=== PATIENT | male | born 1975 | race Caucasian/White ===

== ENCOUNTER 2017-11-20 14:16 | Emergency (ER) | payer OTHER, BC ==
--- NOTE | 2017-11-20 14:46 | EDM.PDOC ---
ED HPI GENERAL MEDICAL PROBLEM - General Chief Complaint: Upper Extremity Injury/Pain Stated Complaint: SMASHED LEFT HAND Time Seen by Provider: 11/20/17 14:41 Source of Information: Reports: Patient History Limitations: Reports: No Limitations - History of Present Illness INITIAL COMMENTS - FREE TEXT/NARRATIVE: HISTORY AND PHYSICAL: History of present illness: Patient is a 42-year-old male here with complaint of left hand pain. He states that he works for [employer] and they were doing a search warrant last night. He states they're using a lidia to open a door and as he was doing that he hit his left hand on the door is open. He is otherwise in his usual state of health and denies any nausea, vomiting, diarrhea, fever, chills, chest pain, shortness of breath. He has not taken anything OTC for his symptoms. Review of systems: As per history of present illness and below otherwise all systems reviewed and negative. Past medical history: As per history of present illness and as reviewed below otherwise noncontributory. Surgical history: As per history of present illness and as reviewed below otherwise noncontributory. Social history: No reported history of drug or alcohol abuse. Family history: As per history of present illness and as reviewed below otherwise noncontributory. Physical exam: General: Patient sitting comfortably in no acute distress and nontoxic appearing HEENT: Atraumatic, normocephalic, pupils reactive, negative for conjunctival pallor or scleral icterus, mucous membranes moist, throat clear, neck supple, nontender, trachea midline. No meningeal signs. Lungs: Clear to auscultation, breath sounds equal bilaterally, chest nontender. Heart: S1S2, regular, negative for clicks, rubs, or overt murmur. Extremities: Skin is intact. There is a quarter size area of ecchymosis over the distal fourth and fifth metacarpal on the dorsal hand. He has pain to palpation in this area. He has normal ROM at MCPs, DIPs, PIPs, and wrist. negative for cords or calf pain. Neurovascular unremarkable. Neuro: Awake, alert, oriented. Cranial nerves II through XII unremarkable. Cerebellum unremarkable. Motor and sensory unremarkable throughout. Exam nonfocal. Notes: Diagnostics: Left hand x-ray Therapeutics: None Prescriptions: None Impression: Left hand injury/contusion Plan: 1. Ice, elevate, and take motrin as needed. 2. Please follow up in the clinic for a work comp follow up. 3. Return to ED as needed as discussed. Definitive disposition and diagnosis as appropriate pending reevaluation and review of above. Left Hand Pain Score (Numeric/FACES): 3 - Related Data Allergies Allergy/AdvReac Type Severity Reaction Status Date / Time No Known Allergies Allergy Verified 05/07/16 12:42 Home Meds: Home Meds Albuterol [Proventil HFA] 6.7 gm INH Q4H #1 inhaler 05/07/16 [Rx] Mesalamine [Lialda] 1 tab PO DAILY 05/07/16 [History] Past Medical History HEENT History: Reports: Sinusitis Cardiovascular History: Reports: None Respiratory History: Reports: Asthma Gastrointestinal History: Reports: Other (See Below) Other Gastrointestinal History: ulcerative colitis Genitourinary History: Reports: None Musculoskeletal History: Reports: None Neurological History: Reports: None Psychiatric History: Reports: None Endocrine/Metabolic History: Reports: None Hematologic History: Reports: None Immunologic History: Reports: None Oncologic (Cancer) History: Reports: None Dermatologic History: Reports: None - Infectious Disease History Infectious Disease History: Reports: Chicken Pox - Past Surgical History HEENT Surgical History: Reports: Other (See Below) Social & Family History - Family History Family Medical History: Noncontributory - Caffeine Use Caffeine Use: Reports: Coffee Caffeine Use Comment: 3 drinks/day Review of Systems - Review of Systems Review Of Systems: ROS reveals no pertinent complaints other than HPI. ED EXAM, GENERAL - Physical Exam Exam: See Below (see dictation) Course - Vital Signs Last Recorded V/S: Last Vital Signs Temp 36.7 C 11/20/17 14:32 Pulse 82 11/20/17 14:32 Resp 18 11/20/17 14:32 BP 171/101 H 11/20/17 14:32 Pulse Ox 100 11/20/17 14:32 Departure - Departure Time of Disposition: 15:18 Disposition: Home, Self-Care 01 Condition: Good Clinical Impression: Contusion of left hand - Discharge Information Referrals: PCP,None [Primary Care Provider] - Forms: ED Department Discharge Additional Instructions: The following information is given to patients seen in the emergency department who are being discharged to home. This information is to outline your options for follow-up care. We provide all patients seen in our emergency department with a follow-up referral. The need for follow-up, as well as the timing and circumstances, are variable depending upon the specifics of your emergency department visit. If you don't have a primary care physician on staff, we will provide you with a referral. We always advise you to contact your personal physician following an emergency department visit to inform them of the circumstance of the visit and for follow-up with them and/or the need for any referrals to a consulting specialist. The emergency department will also refer you to a specialist when appropriate. This referral assures that you have the opportunity for follow-up care with a specialist. All of these measure are taken in an effort to provide you with optimal care, which includes your follow-up. Under all circumstances we always encourage you to contact your private physician who remains a resource for coordinating your care. When calling for follow-up care, please make the office aware that this follow-up is from your recent emergency room visit. If for any reason you are refused follow-up, please contact the [facility] Emergency [facility] at and asked to speak to the emergency department charge nurse. [facility] [address] [place] [id number] [facility] [address] [place] [id number] 1. Ice, elevate, and take motrin as needed. 2. Please follow up in the clinic for a work comp follow up. 3. Return to ED as needed as discussed.
--- NOTE | 2017-11-20 15:15 | CR ---
EXAMINATION: Left hand HISTORY: Pain COMPARISON: None TECHNIQUE: 2 views FINDINGS: There is an old nonunited ulnar styloid fracture identified with corticated margins. The re maining osseous structures and joint spaces appear preserved. Bone mineralization is otherwise normal . No foreign body. IMPRESSION: No acute osseous abnormality identified.
[2017-11-20 15:54] VITALS: BP 164/106
== END 2017-11-20 15:54 | disposition home or self-care (01) ==
LOC: MW.ED 14:16
DX: S60.222A Contusion of left hand, initial encounter (principal); Z79.899 Other long term (current) drug therapy; W23.1XXA Caught, crushed, jammed, or pinched between stationary objects, initial encounter; Y99.0 Civilian activity done for income or pay
CPT/HCPCS: 73120-26-LT; 73120-LT; 99283

== ENCOUNTER 2020-03-02 07:35 | Day surgery (SDC) | payer OTHER ==
[~2020-03-02 07:35] MED LIST: Bupivacaine 25%/EPINEPHrine/PF 30 ML ONE; Lactated Ringers 1,000 ML IV SCH; Midazolam 1 MG/ML 2 ML SDV ONE; Ondansetron 4 MG/2 ML SDV ONE; Propofol 200 MG/20 ML SDV ONE; Rocuronium Bromide 50 MG/5 ML Syringe ONE; fentaNYL 100 MCG/2 ML SDV ONE
--- NOTE | 2020-03-02 07:46 | PCM.PREANE ---
Preanesthetic Assessment - Anesthesia/Transfusion/Family Hx Anesthesia History: Prior Anesthesia Without Reaction Family History of Anesthesia Reaction: No Transfusion History: No Prior Transfusion(s) Intubation History: Unknown - Review of Systems General: No Symptoms Pulmonary: No Symptoms Cardiovascular: No Symptoms Gastrointestinal: No Symptoms Neurological: No Symptoms Other: Reports: None - Physical Assessment Height: 6 ft 2 in Weight: 114.759 kg ASA Class: 2 Mental Status: Alert & Oriented x3 Airway Class: Mallampati = 2 Dentition: Reports: Normal Dentition Thyro-Mental Finger Breadths: 3 Mouth Opening Finger Breadths: 3 ROM/Head Extension: Full Lungs: Clear to Auscultation, Normal Respiratory Effort Cardiovascular: Regular Rate, Regular Rhythm - Lab Values: Laboratory Last Values SARS-CoV-2 RNA (SHERRY) NEGATIVE (NEGATIVE) 03/02/20 06:00 - Allergies Allergies/Adverse Reactions: Allergies Allergy/AdvReac Type Severity Reaction Status Date / Time No Known Allergies Allergy Verified 02/25/20 13:37 - Blood Blood Available: No - Anesthesia Plan Pre-Op Medication Ordered: None - Acknowledgements Anesthesia Type Planned: General Anesthesia Pt an Appropriate Candidate for the Planned Anesthesia: Yes Alternatives and Risks of Anesthesia Discussed w Pt/Guardian: Yes Pt/Guardian Understands and Agrees with Anesthesia Plan: Yes PreAnesthesia Questionnaire HEENT History: Reports: Sinusitis Cardiovascular History: Reports: Hypertension Respiratory History: Reports: Asthma (exercize induced) Gastrointestinal History: Reports: Other (See Below) Other Gastrointestinal History: ulcerative colitis Genitourinary History: Reports: None Musculoskeletal History: Reports: Fracture Other Musculoskeletal History: hx fx hand Neurological History: Reports: Migraines Psychiatric History: Reports: None Endocrine/Metabolic History: Reports: Obesity/BMI 30+ (BMI 32.5) Hematologic History: Reports: None Immunologic History: Reports: None Oncologic (Cancer) History: Reports: None Dermatologic History: Reports: None - Infectious Disease History Infectious Disease History: Reports: None - Past Surgical History Head Surgeries/Procedures: Reports: None HEENT Surgical History: Reports: Naso-Sinus Surgery Cardiovascular Surgical History: Reports: None Respiratory Surgical History: Reports: None GI Surgical History: Reports: Other (See Below) Other GI Surgeries/Procedures: hemorrhoidectomy Male Surgical History: Reports: None Endocrine Surgical History: Reports: None Neurological Surgical History: Reports: None Musculoskeletal Surgical History: Reports: None Oncologic Surgical History: Reports: None Dermatological Surgical History: Reports: Other (See Below) - SUBSTANCE USE Tobacco Use Status *Q: Former Tobacco User Tobacco Use Within Last Twelve Months: Smokeless Tobacco, Other (See Below) - HOME MEDS Home Medications: Home Meds Albuterol [Proventil HFA] 2 puff INH Q4H PRN 09/27/18 [History] Fluticasone Propionate [Flonase Allergy Relief] 1 spray NASBOTH DAILY 09/27/18 [History] Lisinopril 40 mg PO DAILY 09/27/18 [History] Montelukast Sodium [Singulair] 10 mg PO ASDIRECTED 09/27/18 [History] Fexofenadine/Pseudoephedrine [Alisia-D 24 Hour Tablet] 1 tab PO ASDIRECTED 02/25/20 [History] Zinc Gluconate [Zinc] 1 tab PO DAILY 02/25/20 [History] - CURRENT (IN HOUSE) MEDS Current Meds: Current Medications Lactated Ringer's (Ringers, Lactated) 1,000 mls @ 100 mls/hr IV ASDIRECTED [facility] Cefazolin Sodium/Dextrose 2 gm (/ Premix) 50 mls @ 100 mls/hr IV ONCALL GRZEGORZ Discontinued Medications Fentanyl (Sublimaze) Confirm Administered Dose 100 mcg .ROUTE .STK-MED ONE Stop: 03/02/20 07:17 Bupivacaine HCl/Epinephrine Bitart (Sensorc Mpf 0.25%-Epi [id number]) Confirm Administered Dose 30 mls @ as directed .ROUTE .STK-MED ONE Stop: 03/02/20 07:34 Lidocaine HCl (Xylocaine-Mpf 1%) Confirm Administered Dose 5 ml .ROUTE .STK-MED ONE Stop: 03/02/20 07:17 Midazolam HCl (Versed 1 Mg/Ml) Confirm Administered Dose 2 mg .ROUTE .STK-MED ONE Stop: 03/02/20 07:17 Ondansetron HCl (Zofran) Confirm Administered Dose 4 mg .ROUTE .STK-MED ONE Stop: 03/02/20 07:17 Propofol (Diprivan 20 Ml) Confirm Administered Dose 200 mg .ROUTE .STK-MED ONE Stop: 03/02/20 07:17 Rocuronium Ratcliff (Rocuronium Ratcliff) Confirm Administered Dose 50 mg .ROUTE .STK-MED ONE Stop: 03/02/20 07:17
[2020-03-02] MEDS ORDERED: ceFAZolin 2 GM in Premix Bag 1 BAG IV SCH (08:00)
[2020-03-02] MEDS ORDERED: ceFAZolin/Dextrose,Iso-Osmotic 2 GM/50 ML Duplex Bag IV ONE (08:09)
[2020-03-02] MEDS ORDERED: Ketorolac 30 MG/ML SDV ONE (08:16)
[2020-03-02] MEDS ORDERED: fentaNYL 100 MCG/2 ML SDV ONE ×2 (08:27→09:43)
[2020-03-02] MEDS ORDERED: ePHEDrine 50 MG/ML SDV ONE (08:36)
[2020-03-02] MEDS ORDERED: Glycopyrrolate 0.2 MG/ML SDV ONE (08:40)
--- NOTE | 2020-03-02 09:22 | PCM.OPNOTE ---
- General Post-Op/Procedure Note Date of Surgery/Procedure: 03/02/20 Operative Procedure(s): Right knee arthroscopy and partial medial meniscectomy Findings: Lateral compartment: Lateral meniscus intact, minimal grade 1 changes femoral and tibial articular cartilage Notch: Anterior cruciate ligament intact Medial compartment: Undersurface tear of the medial meniscus posterior third body, grade 1-2 cartilage changes posterior aspect of tibial cartilage in the region of the meniscal tear, minimal femoral cartilage changes Patellofemoral compartment: Grade 2 cobblestone changes of the patellar ridge and grade 1 changes of the trochlear groove articular cartilage Pre Op Diagnosis: Right knee medial meniscus tear Post-Op Diagnosis: Right knee medial meniscus tear Anesthesia Technique: General ET Tube Primary Surgeon: Ahsan Esquivel Ichthyologist: Rena Eubanks Ichthyologist Was Necessary: Positioning Pathology: None EBL in mLs: 5 Complications: None Free Text/Narrative:: Patient is a 44-year-old male with right knee pain. He has a documented right medial meniscus tear documented by MRI. We discussed the risks and benefits of surgery for knee arthroscopy and partial medial meniscectomy. All questions were answered. Patient consented to proceed with surgery. Patient was taken to the operating room. After adequate general anesthesia, he remained in a supine position. Tourniquet was placed around the right proximal thigh. The right lower extremities prepped draped in usual sterile manner. The leg was elevated and the tourniquet inflated. Arthroscopy was performed with superior medial drain portal medial and lateral parapatellar arthroscopy portals and accessory medial working portals. The above diagnostic arthroscopy findings are noted. Partial medial meniscectomy was performed with punches and a shaver back to a stable rim. The stable rim was confirmed with probing. Fluid was expressed from the joint, Marcaine injected into the subcutaneous tissue but not the joint, portals were closed with nylon sutures. Sterile dressing was applied. Patient was accompanied the cover room in stable condition. Pain management: Ibuprofen, acetaminophen, hydrocodone. Venous thromboembolism prophylaxis: Not indicated for knee arthroscopy. Prophylactic antibiotics: Not indicated for outpatient procedure. Restrictions: Patient is weightbearing as tolerated on his right lower extremity with assistive device as needed. He has no specific restrictions and may resume activities as tolerated. He is off work until Saturday, March 07, 2020 when he may return to work light duty.
[2020-03-02] MEDS ORDERED: fentaNYL 100 MCG/2 ML SDV IVPUSH PRN (09:47)
--- NOTE | 2020-03-02 10:07 | PCM.POSTAN ---
POST ANESTHESIA ASSESSMENT - MENTAL STATUS Mental Status: Alert, Oriented - VITAL SIGNS Vital Signs: Last Vital Signs Temp 36.4 C 03/02/20 07:53 Pulse 56 L 03/02/20 09:58 Resp 10 L 03/02/20 09:58 BP 124/79 03/02/20 09:58 Pulse Ox 95 03/02/20 09:58 - RESPIRATORY Respiratory Status: Respiratory Rate WNL, Airway Patent, O2 Saturation Stable - CARDIOVASCULAR CV Status: Pulse Rate WNL, Blood Pressure Stable - GASTROINTESTINAL GI Status: No Symptoms - PAIN Pain Score: 2 - POST OP HYDRATION Hydration Status: Adequate & Stable - OBSERVATIONS Free Text/Narrative:: No anesthesia problems
--- NOTE | 2020-03-02 10:59 | PCM48HPAN ---
Post Anesthesia Note - EVALUATION WITHIN 48HRS OF ANESTHETIC Vital Signs in Normal Range: Yes Patient Participated in Evaluation: Yes Respiratory Function Stable: Yes Airway Patent: Yes Cardiovascular Function Stable: Yes Hydration Status Stable: Yes Pain Control Satisfactory: Yes Nausea and Vomiting Control Satisfactory: Yes Mental Status Recovered: Yes Vital Signs: Last Vital Signs Temp 36.4 C 03/02/20 07:53 Pulse 56 L 03/02/20 09:58 Resp 10 L 03/02/20 09:58 BP 124/79 03/02/20 09:58 Pulse Ox 95 03/02/20 09:58 - COMMENTS/OBSERVATIONS Free Text/Narrative:: No anesthesia problems
[2020-03-02 12:24] VITALS: BP 111/76; PULSE 53
== END 2020-03-02 11:29 | disposition home or self-care (01) ==
LOC: MW.SDS 07:35
PROVIDERS: ATTEND Orthopaedic Surgery
DX: S83.241A Other tear of medial meniscus, current injury, right knee, initial encounter (principal); Z01.812 Encounter for preprocedural laboratory examination; Z20.828 Contact with and (suspected) exposure to other viral communicable diseases; I10 Essential (primary) hypertension; E66.9 Obesity, unspecified; Z68.32 Body mass index [BMI] 32.0-32.9, adult; Z87.891 Personal history of nicotine dependence; X58.XXXA Exposure to other specified factors, initial encounter
CPT/HCPCS: 29881; 87635; J0690; J1885; J2001; J2250; J2405; J2704; J3010; J3490; J7120; 01400; U0002

== ENCOUNTER 2020-11-02 17:43 | Emergency (ER) | payer OTHER ==
[2020-11-02] MEDS ORDERED: Sodium Chloride 0.9% 1,000 ML IV ONE (17:47)
[2020-11-02] MEDS ORDERED: Sodium Chloride 0.9% 10 ML Syringe FLUSH PRN (17:47)
[2020-11-02] MEDS ORDERED: Sodium Chloride 0.9% 2.5 ML Syringe FLUSH PRN (17:47)
--- NOTE | 2020-11-02 17:55 | EDM.PDOC ---
ED HPI GENERAL MEDICAL PROBLEM - General Chief Complaint: Syncope Stated Complaint: SPOKE W/ NURSE Time Seen by Provider: 11/02/20 17:45 - History of Present Illness INITIAL COMMENTS - FREE TEXT/NARRATIVE: HISTORY AND PHYSICAL: History of present illness: This a 45-year-old gentleman with history significant for hypertension who presents to the ER today secondary to a witnessed syncopal episode. Patient was here with his son in room 9 assisting with a laceration to his son's ankle. Patient had assisted by holding his son's hands during both anesthetizing the wound as well as suturing of the wound. After the wound had been sutured, the patient was sitting with his son for approximately 10 minutes when his son started screaming for help. The son reports that his father became unresponsive, his eyes rolled up in his head and was twitching up and down a little bit. Patient was sitting in his chair when this occurred next his son. He did not fall out of the chair and did not incur any injury or trauma to his head. Nursing staff and myself were immediately present and were able to assist patient down slowly to the floor where he became more responsive over approximately a 30 to 45-second period. Patient reports that he denies any recent fevers, shakes, chills, nausea, vomiting, diarrhea, dysuria, frequency, urgency, chest pain, shortness of breath, abdominal pain, pain rating to his arms or other back. Patient reports that he just felt extremely warm and flushed and then next he recalls is being on the floor with us around him. Patient denies any history of heart disease, CAD, heart failure, strokes. Patient denies any history of diabetes, liver, lung, kidney problems. Patient denies any prior abdominal or chest surgeries. Patient denies any tobacco alcohol or drugs but he does chew tobacco. Review of systems: As per history of present illness and below otherwise all systems reviewed and negative. Past medical history: As per history of present illness and as reviewed below otherwise noncontributory. Surgical history: As per history of present illness and as reviewed below otherwise noncontributory. Social history: No reported history of drug abuse. Family history: As per history of present illness and as reviewed below otherwise noncontributory. Physical exam: This patient was seen and evaluated during the 2019 SARS-CoV-2 novel coronavirus pandemic period. Community viral transmission is ongoing at time of this encounter and the emergency department is operating under pandemic response procedures. Constitutional: Patient is oriented to person, place, and time. Appears well- developed and well-nourished. No distress. HEENT: Moist mucous membranes Head: Normocephalic and atraumatic Eyes: Right eye exhibits no discharge. Left eye exhibits no discharge. No scleral icterus Neck: Normal range of motion. No tracheal deviation present. Cardiovascular: Normal rate and regular rhythm. No murmurs gallops or rubs Pulmonary: Effort normal, no respiratory distress. No wheezing rales or rhonchi Abd: Soft, nondistended, no rebound/guarding, no psoas or obturator signs, no tenderness at Mcberney's point, no Momin's sign. Pt does not present with an exam that would be consistent with an acute surgical abdomen at this time Musculoskeletal: Normal range of motion Neurologic: Alert and oriented to person, place and time. Skin: Dasher, warm and diaphoretic. Psychiatric: Normal mood and affect. Behavior is normal. Judgment and thought content normal. Nursing note and vital signs have been reviewed Patient extremely diaphoretic upon arrival with unresponsive behavior and shallow respirations. This lasted for approximately 30 seconds and patient became more alert awake and back to baseline within 60 seconds of the syncopal episode. Diagnostics: [] Therapeutics: [] Assessment and plan: This is a 45-year-old gentleman who presents to the ER today with a witnessed syncopal episode while he was here in the ED with a son secondary to a laceration to his son's left ankle. Patient reports that he that he did have 1 episode of syncope several years ago when he saw blood with his mother. Patient reports that today he only had a couple coffee for breakfast and couple apples with caramel for lunch. He reports he did not drink much fluids today or eat anything else. In the ED, the patient's blood sugar was greater than 100. Patient's blood pressure immediately after the syncopal episode while he was on the ground was markedly elevated at approximately 180/110. Patient's EKG did not reveal any evidence of arrhythmias, STEMI, abnormal intervals. EKG: EKG date November 02, 2020 at 5:40 PM As interpreted by ER physician: [place]: Nonspecific ST-T wave abnormalities Normal axis No evidence of ST elevation TN Normal sinus rhythm heart rate of 91 Patient will have labs drawn including a CBC, CMP, electrolytes, troponin. Patient was given IV fluids here in the ED and will be reevaluated. 6:46 PM: Patient was reevaluated in the ED. Patient's labs are all within normal limits. Patient currently is alert awake and orient x3 and has no further episodes of diaphoresis. Patient is ambulating in the ED with stable gait. Patient's blood pressure is 140/85 with a heart rate of 72. I have given the patient the option for admission for further evaluation however he reports that he feels extremely comfortable and does not wish to be admitted to the hospital and would rather be discharged home. This is most likely a vasovagal episode secondary to a combination of decreased p.o. intake today, dehydration, and the situation with his son getting sutured with blood exposure. Definitive disposition and diagnosis as appropriate pending reevaluation and review of above. - Related Data Allergies Allergy/AdvReac Type Severity Reaction Status Date / Time No Known Allergies Allergy Verified 11/02/20 17:46 Home Meds: Home Meds Albuterol [Proventil HFA] 2 puff INH Q4H PRN 09/27/18 [History] Lisinopril 40 mg PO DAILY 09/27/18 [History] Montelukast Sodium [Singulair] 10 mg PO ASDIRECTED 09/27/18 [History] Fexofenadine/Pseudoephedrine [Alisia-D 24 Hour Tablet] 1 tab PO ASDIRECTED 02/25/20 [History] Past Medical History HEENT History: Reports: Sinusitis Cardiovascular History: Reports: Hypertension Respiratory History: Reports: Asthma Gastrointestinal History: Reports: Other (See Below) Other Gastrointestinal History: ulcerative colitis Genitourinary History: Reports: None Musculoskeletal History: Reports: Fracture Other Musculoskeletal History: hx fx hand Neurological History: Reports: Migraines Psychiatric History: Reports: None Endocrine/Metabolic History: Reports: Obesity/BMI 30+ Hematologic History: Reports: None Immunologic History: Reports: None Oncologic (Cancer) History: Reports: None Dermatologic History: Reports: None - Infectious Disease History Infectious Disease History: Reports: None - Past Surgical History Head Surgeries/Procedures: Reports: None HEENT Surgical History: Reports: Naso-Sinus Surgery Cardiovascular Surgical History: Reports: None Respiratory Surgical History: Reports: None GI Surgical History: Reports: Other (See Below) Other GI Surgeries/Procedures: hemorrhoidectomy Male Surgical History: Reports: None Endocrine Surgical History: Reports: None Neurological Surgical History: Reports: None Musculoskeletal Surgical History: Reports: None Oncologic Surgical History: Reports: None Dermatological Surgical History: Reports: Other (See Below) Social & Family History - Family History Family Medical History: No Pertinent Family History - Caffeine Use Caffeine Use: Reports: Coffee Caffeine Use Comment: 3 drinks/day ED ROS GENERAL - Review of Systems Review Of Systems: See Below ED EXAM, GENERAL - Physical Exam Exam: See Below Course - Vital Signs Last Recorded V/S: Last Vital Signs Temp 95.9 F L 11/02/20 19:34 Pulse 79 11/02/20 19:34 Resp 18 11/02/20 19:34 BP 141/93 H 11/02/20 19:34 Pulse Ox 100 11/02/20 19:34 - Orders/Labs/Meds Labs: Laboratory Tests 11/02/20 11/02/20 Range/Units 17:50 17:50 WBC 11.36 H (4.0-11.0) K/uL RBC 5.58 (4.50-5.90) M/uL Hgb 17.3 H (13.0-17.0) g/dL Hct 49.3 (38.0-50.0) % MCV 88.4 (80.0-98.0) fL MCH 31.0 (27.0-32.0) pg MCHC 35.1 (31.0-37.0) g/dL RDW Std Deviation 39.5 (28.0-62.0) fl RDW Coeff of Vinay 12 (11.0-15.0) % Plt Count 288 (150-400) K/uL MPV 10.00 (7.40-12.00) fL Neut % (Auto) 56.3 (48.0-80.0) % Lymph % (Auto) 30.7 (16.0-40.0) % [place] % (Auto) 9.7 (0.0-15.0) % Eos % (Auto) 2.7 (0.0-7.0) % Baso % (Auto) 0.6 (0.0-1.5) % Neut # (Auto) 6.4 H (1.4-5.7) K/uL Lymph # (Auto) 3.5 H (0.6-2.4) K/uL [place] # (Auto) 1.1 H (0.0-0.8) K/uL Eos # (Auto) 0.3 (0.0-0.7) K/uL Baso # (Auto) 0.1 (0.0-0.1) K/uL Nucleated RBC % 0.0 /100WBC Nucleated RBCs # 0 K/uL Sodium 140 (136-148) mmol/L Potassium 3.3 L (3.5-5.1) mmol/L Chloride 101 (98-107) mmol/L Carbon Dioxide 22.7 (21.0-32.0) mmol/L BUN 12 (7.0-18.0) mg/dL Creatinine 1.5 H (0.8-1.3) mg/dL Est Cr Clr Drug Dosing 71.54 mL/min Estimated GFR (MDRD) 50.4 ml/min Glucose 102 (74-106) mg/dL Calcium 8.8 (8.5-10.1) mg/dL Magnesium 2.0 (1.8-2.4) mg/dL Total Bilirubin 0.7 (0.2-1.0) mg/dL AST 34 (15-37) IU/L ALT 60 (14-63) IU/L Alkaline Phosphatase 80 (46-116) U/L Troponin I < 0.050 (0.000-0.056) ng/mL Total Protein 7.6 (6.4-8.2) g/dL Albumin 4.2 (3.4-5.0) g/dL Globulin 3.4 (2.6-4.0) g/dL Albumin/Globulin Ratio 1.2 (0.9-1.6) Meds: Medications Discontinued Medications Generic Name Dose Route Start Last Admin Trade Name Freq PRN Reason Stop Dose Admin Sodium Chloride 1,000 mls @ 999 mls/hr 11/02/20 17:47 11/02/20 17:58 Normal Saline IV 11/02/20 18:47 999 mls/hr .Bolus ONE Administration Sodium Chloride 10 ml 11/02/20 17:47 11/02/20 17:58 Sodium Chloride 0.9% 10 Ml Syringe FLUSH 10 ml ASDIRECTED PRN Administration Keep Vein Open Sodium Chloride 2.5 ml 11/02/20 17:47 11/02/20 17:58 Sodium Chloride 0.9% 2.5 Ml Syringe FLUSH 2.5 ml ASDIRECTED PRN Administration Keep Vein Open Departure - Departure Time of Disposition: 19:19 Disposition: Home, Self-Care 01 Condition: Good Clinical Impression: Vasovagal syncope - Discharge Information Instructions: Dehydration, Adult, [id number], Syncope, [id number] Referrals: PCP,None [Primary Care Provider] - Forms: ED Department Discharge Additional Instructions: You were seen and evaluated in the ER today secondary to passing out while your son was being evaluated for a laceration to his ankle. All your blood tests were within normal limits. Your EKG looked normal. Your heart enzymes were within normal limits. As we discussed, your kidney function is slightly elevated which is likely related to your longstanding hypertension. When comparing your kidney function to prior results, it appears to not have changed very much. This definitely needs to be further worked up by your family doctor to make sure your blood pressure is well controlled. Please make an appointment to follow-up with your family doctor in the next 1 to 2 days for reevaluation. The following information is given to patients seen in the emergency department who are being discharged to home. This information is to outline your options for follow-up care. We provide all patients seen in our emergency department with a follow-up referral. The need for follow-up, as well as the timing and circumstances, are variable depending upon the specifics of your emergency department visit. If you don't have a primary care physician on staff, we will provide you with a referral. We always advise you to contact your personal physician following an emergency department visit to inform them of the circumstance of the visit and for follow-up with them and/or the need for any referrals to a consulting specialist. The emergency department will also refer you to a specialist when appropriate. This referral assures that you have the opportunity for follow-up care with a specialist. All of these measure are taken in an effort to provide you with optimal care, which includes your follow-up. Under all circumstances we always encourage you to contact your private physician who remains a resource for coordinating your care. When calling for follow-up care, please make the office aware that this follow-up is from your recent emergency room visit. If for any reason you are refused follow-up, please contact the [facility] Emergency Department at and asked to speak to the emergency department charge nurse. [facility] [address] [place] [id number] [id number]
[2020-11-02 18:28] LABS: BLOOD UREA NITROGEN,BUN 12 mg/dL (7.0-18.0); CARBON DIOXIDE,CO2 22.7 mmol/L (21.0-32.0); CHLORIDE,CL 101 mmol/L (98-107); GLUCOSE RANDOM 102 mg/dL (74-106); POTASSIUM,K 3.3 mmol/L (3.5-5.1); SODIUM,NA 140 mmol/L (136-148)
--- NOTE | 2020-11-02 18:38 | CR ---
INDICATION: syncope TECHNIQUE: Chest 1 view. COMPARISION: 09/27/18 FINDINGS: Cardiovascular and mediastinum: Heart size and vasculature are normal in caliber and appearance. Mediastinum is within normal limits. Lungs and pleural space: Lungs are clear. No sign of infiltrate or mass. No sign of pleural effusion. No pneumothorax. Bones and soft tissues: No significant findings. IMPRESSION: Unremarkable chest. Dictated by: John Selby MD @ 11/02/2020 18:36:56 (Electronically Signed)
[2020-11-02 19:35] VITALS: BP 141/93; PULSE 79
== END 2020-11-02 19:36 | disposition home or self-care (01) ==
LOC: MW.ED 17:43
DX: R55 Syncope and collapse (principal); I10 Essential (primary) hypertension; E66.9 Obesity, unspecified; Z68.45 Body mass index [BMI] 70 or greater, adult; Z79.899 Other long term (current) drug therapy
CPT/HCPCS: 36415; 71045; 80053; 83735; 84484; 85025; 93005; 99284; J7030; 93010

== ENCOUNTER 2024-01-02 11:39 | Emergency (ER) | payer OTHER ==
[2024-01-02] MEDS: Acetaminophen 500 MG Tab PO ONE (11:52)
[2024-01-02] MEDS: Ibuprofen 600 MG Tab PO ONE (11:52)
[2024-01-02] MEDS: Diphtheria,Pertussis(Acell),Tetanus Vaccine 0.5 ML Syringe IM ONE (11:53)
[2024-01-02] MEDS: Lidocaine 1% with EPINEPHrine 1:100,000 10 ML MDV INJECT ONE (12:01)
[2024-01-02] MEDS: Bacitracin Oint 28.35 GM Tube TOP STA (12:28)
[2024-01-02 12:37] VITALS: BP 174/101; PULSE 84
== END 2024-01-02 12:37 | disposition home or self-care (01) ==
LOC: MW.ED 11:39
DX: S71.131A Puncture wound without foreign body, right thigh, initial encounter (principal); I10 Essential (primary) hypertension; E66.9 Obesity, unspecified; Z79.899 Other long term (current) drug therapy; Z68.33 Body mass index [BMI] 33.0-33.9, adult; Z23 Encounter for immunization; W34.00XA Accidental discharge from unspecified firearms or gun, initial encounter
CPT/HCPCS: 72170; 73552; 90471; 90715; 99283; A9270; 99284

== ENCOUNTER 2024-04-26 13:47 | Emergency (ER) | payer OTHER ==
[2024-04-26] MEDS: Sodium Chloride 0.9% 1,000 ML IV ONE (15:15)
[2024-04-26] MEDS: Ketorolac 30 MG/ML SDV IVPUSH ONE (15:20)
[2024-04-26 15:23] LABS: BASOPHILS ABSOLUTE AUTO 0.06 K/uL (0.00-0.20); BASOPHILS PERCENT AUTO 0.9 % (0.0-1.0); EOSINOPHILS ABSOLUTE AUTO 0.08 K/uL (0.00-0.45); EOSINOPHILS PERCENT AUTO 1.1 % (0.0-6.0); HEMATOCRIT 53.2 % (42.0-52.0); HEMOGLOBIN 18.4 g/dL (14.0-18.0); IMMATURE GRAN ABSOLUTE AUTO 0.02 K/uL (0.00-0.05); IMMATURE GRAN PERCENT AUTO 0.3 % (0.0-0.4); LYMPHOCYTES ABSOLUTE AUTO 0.94 K/uL (1.00-4.80); LYMPHOCYTES PERCENT AUTO 13.4 % (24.0-44.0); MEAN CORPUSCULAR HEMOGLOBIN 30.1 pg (28.0-32.0); MEAN CORPUSCULAR HGB CONC 34.6 g/dL (32.0-36.0); MEAN CORPUSCULAR VOLUME 87.1 fL (83.0-99.0); MEAN PLATELET VOLUME 9.7 fL (9.4-12.4); MONOCYTES ABSOLUTE AUTO 0.86 K/uL (0.00-0.80); MONOCYTES PERCENT AUTO 12.3 % (0.0-8.0); NEUTROPHILS ABSOLUTE AUTO 5.03 K/uL (1.80-7.70); PLATELET COUNT,PLT 205 K/uL (150-400); RED BLOOD CELL COUNT 6.11 M/uL (4.52-5.90); WHITE BLOOD CELL COUNT,WBC 6.99 K/uL (3.9-11.3)
[2024-04-26 15:46] LABS: A/G RATIO 1.1 (0.9-1.6); ALBUMIN 3.2 g/dL (3.4-5.0); BILIRUBIN TOTAL 0.3 mg/dL (0.2-1.0); CALCIUM 8.3 mg/dL (8.5-10.1); CARBON DIOXIDE,CO2 25.8 mmol/L (21.0-32.0); CREATININE 1.3 mg/dL (0.8-1.3); EST CRCL DRUG DOSING (CG) 79.92 mL/min; POTASSIUM,K 3.5 mmol/L (3.5-5.1); PROTEIN TOTAL,TP 6.2 g/dL (6.4-8.2)
[2024-04-26 16:02] LABS: APPEARANCE,URINE CLEAR; BILIRUBIN,URINE NEGATIVE (NEGATIVE); COLOR,URINE YELLOW; GLUCOSE,URINE NEGATIVE (NEGATIVE); KETONES,URINE NEGATIVE (NEGATIVE); PROTEIN,URINE NEGATIVE (NEGATIVE)
[2024-04-26 16:03] LABS: LEUKOCYTE ESTERASE,URINE NEGATIVE (NEGATIVE); NITRITE,URINE NEGATIVE (NEGATIVE); OCCULT BLOOD,URINE TRACE (NEGATIVE); UROBILINOGEN,URINE 0.2 EU/dL (<2.0)
[2024-04-26 16:06] LABS: CORONAVIRUS COVID-19 NAA NEGATIVE (NEGATIVE); INFLUENZA A NAA POSITIVE (NEGATIVE); INFLUENZA B NAA NEGATIVE (NEGATIVE)
[2024-04-26 16:08] LABS: RBC,URINE NONE SEEN (0-2/HPF); WBC,URINE 0-1 (0-5/HPF)
[2024-04-26 16:09] LABS: BACTERIA,URINE RARE (NEGATIVE); EPITHELIAL CELLS,URINE RARE (NONE-FEW); MUCUS,URINE LIGHT (NONE-MOD)
[2024-04-26] MEDS: Oseltamivir 75 MG Cap PO ONE (17:09)
[2024-04-26 17:16] VITALS: BP 138/94; PULSE 77
== END 2024-04-26 17:16 | disposition home or self-care (01) ==
LOC: MW.ED 13:47
DX: J10.1 Influenza due to other identified influenza virus with other respiratory manifestations (principal); I10 Essential (primary) hypertension; J45.909 Unspecified asthma, uncomplicated; Z75.8 Other problems related to medical facilities and other health care; Z79.51 Long term (current) use of inhaled steroids; Z79.899 Other long term (current) drug therapy
CPT/HCPCS: 0240U; 36415; 80053; 81001; 83735; 84484; 85025; 87428; 96374; 99284; A9270; J1885; J7030; 99283